=== PATIENT | male | born 1960 | race Caucasian/White ===

== ENCOUNTER 2017-03-02 01:13 | Emergency (ER) | payer BC, OTHER ==
[2017-03-02] MEDS ORDERED: ASPIRIN 81 MG TAB.CHEW PO ONE (01:28)
[2017-03-02] MEDS ORDERED: NORMAL SALINE 1,000 ML IV PRN (01:29)
[2017-03-02] MEDS ORDERED: ASPIRIN 81 MG TAB.CHEW ONE (01:30)
[2017-03-02] MEDS: NITROGLYCERIN 0.4 MG/TAB BTL SL PRN ×2 (01:33→01:51)
[2017-03-02 01:47] LABS: Hematocrit 33.4 % (42.0-52.0); Hemoglobin 10.7 gm/dL (13.5-18.0); Mean Cell Volume 89.3 fl (78-100); Mean Corpuscular Hemoglobin 28.6 pg (27-31); Neutrophil # 6.2 K/mm3 (1.3-6.0); Neutrophil % 73.8 % (42-75.0); Platelet Count 281 K/mm3 (150-450); Red Blood Count 3.74 M/mm3 (4.7-6.0); Red Cell Distribution Width 12.7 % (11.5-14.0); White Blood Count 8.4 K/mm3 (4.0-10.5)
[2017-03-02 02:01] LABS: Prothrombin Time (Patient) 10.9 Seconds (9.4-11.4)
[2017-03-02] MEDS ORDERED: MORPHINE SULFATE 2 MG/ML DISP.SYRIN IV ONE ×3 (02:04→11:19)
[2017-03-02 02:05] LABS: INR 1.05 INR (0.90-1.10); Partial Thrombolplastin Time 24.7 Seconds (24-32)
[2017-03-02] MEDS ORDERED: MORPHINE SULFATE 2 MG/ML DISP.SYRIN ONE ×2 (02:09→11:20)
[2017-03-02 02:10] LABS: ALT 70 U/L (19-67); AST 111 U/L (0-48); Albumin * 3.4 gm/dl (3.4-5.0); Alkaline Phosphatase * 180 U/L (50-170); Amylase * 22 U/L (25-115); Anion Gap 14.2 mmol/L (6.8-13.8); BNP * 52 pg/mL (5-175); BUN/Creatinine Ratio 16.7 (9.0-21.6); Bilirubin, Total 0.5 mg/dL (0.0-1.1); Blood Urea Nitrogen 16 mg/dL (6-23); Ca. Corrected For Albumin 9.1 mg/dL (8.4-10.2); Calcium * 8.9 mg/dL (7.9-10.9); Carbon Dioxide 26.1 mmol/L (24-32.6); Chloride 102 mmol/L (97-106); Glucose * 125 mg/dL (70-110); Lipase 112 U/L (73-393); Potassium 4.3 mmol/L (3.4-4.6); Sodium 138 mmol/L (132-142); Total Protein 7.6 gm/dL (6.2-8.2)
[2017-03-02 02:14] LABS: Troponin I Less than 0.017 ng/ml (0.00-0.10)
[2017-03-02] MEDS ORDERED: ENOXAPARIN SODIUM 30 MG/0.3 ML SYRG SC ONE (04:11)
[2017-03-02] MEDS ORDERED: ENOXAPARIN SODIUM 100 MG/ML SYRG SC ONE ×2 (04:11→04:32)
--- NOTE | 2017-03-02 04:27 | ERNOTE ---
<Surinder Hernandez - Last Filed: 03/02/17 04:18> Chest Pain/Cardiac HPI Date of Service: 03/02/17 Chief Complaint: Chest Pain Time Seen by Provider: 03/02/17 01:20 Source: patient, family Exam Limitations: no limitations Immunizations: IMMUNIZATION HX Immunizations Up to Date Yes History of Influenza Vaccine No Hx Pneumococcal Vaccination No Allergies/Adverse Reactions: Allergies No Known Allergies Allergy (Unverified 03/02/17 01:15) Home Medications: HOME MEDICATIONS Azithromycin [Zithromax] 250 mg PO DAILY 03/02/17 [Last Taken Unknown] Benzonatate [Tessalon Perle] 100 mg PO TID 03/02/17 [Last Taken Unknown] Naproxen Sodium [Aleve] 220 mg PO BID 03/02/17 [Last Taken Unknown] Narrative: patient presents with onset yesterday of acute sharp chest pain in left chest, pain has waxed and wained, and now is intense Timing: constant, getting worse Severity/Quality: moderate, sharp, stabbing Location: substernal, left chest Chest Pain Radiation: no radiation Activities at Onset: none Modifying Factors - Improves: Present: nothing Modifying Factors - Worsens: Present: nothing Nitro Today/Relief: no nitro taken today Aspirin Treatment Today: no aspirin today Associated Symptoms: Present: denies symptoms Review of Systems - Review of Systems Constitutional: Present: See HPI EYE: Present: no symptoms reported ENT: Present: no symptoms reported Respiratory: Present: See HPI, shortness of breath Cardiology: Present: See HPI, chest pain Gastrointestinal/Abdominal: Present: no symptoms reported Genitourinary: Present: no symptoms reported Musculoskeletal: Present: no symptoms reported Skin: Present: no symptoms reported Neurological: Present: no symptoms reported Endocrine: Present: no symptoms reported Hematologic/Lymphatic: Present: no symptoms reported All Other Systems: All systems neg except as marked - Patient's Past Medical History Patient History - Medical: No pertinent hx Patient History - Cardiac/Respiratory: No pertinent hx Patient History - Cancer: No Hx of Cancer Patient History - Surgical Procedures: No surgical history Patient History - Other: None - Family History Family History:: no untoward family reactions to anesthesia, no family history of clotting disorders - Social History Living Situations: home Abuse History: No History of abuse Psych History: No pertinent hx Does anyone smoke in the home?: No Smoking Status: Never smoker Have you smoked in the past 12 months: No Do you dip or chew tobacco: No Patient requests Smoking Cessation Consult: No Initiate information on Smoking Cessation: No Alcohol Use: none Drug Use: none - Immunizations Immunizations Up to Date: Yes Hx Pneumococcal Vaccination: No History of Influenza Vaccine: No Physical Exam - Physical Exam General Appearance: Present: moderate distress Head Exam: Present: normal inspection, no evidence of injury Eye Exam: Normal inspection: bilateral, PERRL: bilateral, EOMI: bilateral Ears, Nose, Throat: Present: normal ENT inspection Neck: Present: normal inspection, nontender Respiratory: Present: no respiratory distress, normal breath sounds, no accessory muscle use, chest nontender, lungs clear Cardiovascular/Chest: Present: regular rate, rhythm, no murmur, normal peripheral pulses Peripheral Pulses: N=norm/S=strong/W=weak/B=bound/A=absent: Carotid (R): Normal , Carotid (L): Normal, Radial (R): Normal, Radial (L): Normal, Femoral (R): Normal, Femoral (L): Normal, Dorsalis-pedis (R): Normal, Dorsalis-pedis (L): Normal Gastrointestinal/Abdominal: Present: normal bowel sounds, nontender, nondistended, soft, no organomegaly Back Exam: Present: normal inspection, normal range of motion, no CVA tenderness , no vertebral tenderness Extremity Exam: Present: normal inspection, non-tender, normal range of motion, no edema Neurological Exam: Present: alert, oriented, normal mood/affect, no motor/ sensory deficits DTR: N=norm/NB=norm/brisk/A=abs/DD=dull/dimin/HC=hyperactive: Bicep (R): Normal , Bicep (L): Normal, Tricep (R): Normal, Tricep (L): Normal, Knee (R): Normal, Knee (L): Normal, Ankle (R): Normal, Ankle (L): Normal Skin Exam: Present: normal color, warm/dry Lymphatic Exam: Present: no adenopathy ED Progress - Results and Orders Patient's Lab Results:: I have reviewed the patient's lab results. - Vital Signs Patient's Vital Signs:: I have reviewed the patient's vital signs. Vital Signs: Vital Signs 03/02/17 03/02/17 03/02/17 01:16 01:26 01:42 Temperature 36.0 C L Pulse Rate 101 H 109 H 100 Respiratory 20 16 Rate Blood Pressure 158/80 124/77 O2 Sat by Pulse 94 91 Oximetry 03/02/17 03/02/17 03/02/17 02:00 02:30 03:00 Temperature Pulse Rate 102 H 100 89 Respiratory 25 H 24 H 26 H Rate Blood Pressure 144/86 127/77 145/76 O2 Sat by Pulse 94 95 2 L Oximetry 03/02/17 04:00 Temperature 36.3 C L Pulse Rate 87 Respiratory 21 H Rate Blood Pressure 133/77 O2 Sat by Pulse 95 Oximetry - EKG EKG: NSR - CT/Ultrasound CT/Ultrasound Narrative: case discussed with dr mabel turner who accepts patient, however are on surge and will notify as soon as bed available - Progress/Reassessment Chief Complaint: Chest Pain Progress:: Improved - Transfer of Care Expected Disposition: Transfer - patient comfortable at present, discussed findings of proable pe ant lseions in lliver Departure Clinical Impression: Pulmonary embolism and infarction - Departure Disposition: Other health care facility Condition: Fair Instructions: Pulmonary Embolism <Zenobia Sequeira - Last Filed: 03/02/17 10:59> Chest Pain/Cardiac HPI Immunizations: IMMUNIZATION HX Immunizations Up to Date Yes History of Influenza Vaccine No Hx Pneumococcal Vaccination No ED Progress - Vital Signs Vital Signs: Vital Signs 03/02/17 03/02/17 03/02/17 03:00 04:00 05:00 Temperature 36.3 C L Pulse Rate 89 87 86 Respiratory 26 H 21 H 12 Rate Blood Pressure 145/76 133/77 133/77 O2 Sat by Pulse 2 L 95 0 L Oximetry 03/02/17 03/02/17 03/02/17 06:16 07:34 08:20 Temperature Pulse Rate 77 79 Respiratory 21 H 20 18 Rate Blood Pressure 122/72 128/7 O2 Sat by Pulse 153 H 96 95 Oximetry 03/02/17 03/02/17 09:27 10:49 Temperature Pulse Rate 90 82 Respiratory 18 20 Rate Blood Pressure 120/73 120/73 O2 Sat by Pulse 93 95 Oximetry Plan - Plan Plan: This patient was seen evaluated diagnosed and treated by the previous provider. At the time this examiner arrived first shift patient's condition was completely stable and he was awaiting placement at [facility]. Due to the extensive wait necessary to get the patient to the [facility] due to [facility] being on saturation, this examiner made the decision to have the patient be transferred to an closer facility with equal and higher level of care at [facility]. Dr Holland graciously accepted the patient to their facility to the MedSurg unit for further workup and evaluation for pulmonary embolism and liver lesions. Her main stable in our emergency room and he will be transferred via ground transport t0 [facility] in [place].
[2017-03-02 12:18] VITALS: BP 122/77
== END 2017-03-02 12:45 | disposition short-term general hospital (02) ==
LOC: ER 01:13
DX: I26.99 Other pulmonary embolism without acute cor pulmonale (principal)